=== PATIENT | male | born 2000 | race Caucasian/White ===

== ENCOUNTER 2018-05-08 21:35 | Emergency (ER) | payer BC ==
[~2018-05-08] VITALS: Ht 185.4 cm; Wt 90.0 kg
[2018-05-08 21:39] VITALS: BP 144/79; TEMP 98
[2018-05-08 22:53] VITALS: PULSE 60
== END 2018-05-08 22:54 | disposition home or self-care (01) ==
LOC: COL.ER 21:35
DX: T18.128A Food in esophagus causing other injury, initial encounter (principal); R13.10 Dysphagia, unspecified

== ENCOUNTER 2018-05-09 14:56 | Day surgery (SDC) | payer BC ==
[~2018-05-09] VITALS: Ht 185.4 cm; Wt 88.7 kg
[2018-05-09 16:13] VITALS: BP 141/72; PULSE 53; TEMP 99.2
[2018-05-09 18:05] VITALS: BP 135/94; PULSE 55
[2018-05-09 18:20] VITALS: BP 133/74; PULSE 61
== END 2018-05-09 18:30 | disposition home or self-care (01) ==
LOC: SDCO 14:56
DX: R13.10 Dysphagia, unspecified (principal)
CPT/HCPCS: J2250; J2405; J3010; J7030

== ENCOUNTER 2018-05-10 22:45 | Emergency (ER) | payer BC | END 2018-05-10 22:59 | disposition left against medical advice (07) | LOC: COL.ER 22:45 | DX: Z72.9 Problem related to lifestyle, unspecified (principal) ==